=== PATIENT | female | born 1990 | race Caucasian/White ===

== ENCOUNTER → 2021-08-03 | Outpatient (CLI) ==
[~2021-08-03] MED LIST: BIRTH CONTROL PILL PO
[2021-08-03 14:08] LABS: BASOPHILS % (AUTO) 0 % (0-10); EOSINOPHILS # (AUTO) 0.2 10^3/uL (0.0-0.3); EOSINOPHILS % (AUTO) 2 % (0-10); HEMATOCRIT 34 % (35-52); HEMOGLOBIN 11.6 g/dL (11.5-16.0); LYMPHOCYTES # (AUTO) 1.9 10^3/uL (1.0-4.0); LYMPHOCYTES % (AUTO) 16 % (12-44); MEAN CORPUSCULAR HEMOGLOBIN 31 pg (25-34); MEAN CORPUSCULAR HGB CONC 34 g/dL (32-36); MEAN CORPUSCULAR VOLUME 91 fL (80-99); MEAN PLATELET VOLUME 10.6 fL (9.0-12.2); MONOCYTES # (AUTO) 0.4 10^3/uL (0.0-1.0); MONOCYTES % (AUTO) 3 % (0-12); NEUTROPHILS # (AUTO) 9.1 10^3/uL (1.8-7.8); NEUTROPHILS % (AUTO) 78 % (42-75); PLATELET COUNT 254 10^3/uL (130-400); WHITE BLOOD COUNT 11.7 10^3/uL (4.3-11.0)
== END ==
LOC: LABNPT 13:51
PROVIDERS: ATTEND Obstetrics & Gynecology
DX: Z36.89 Encounter for other specified antenatal screening (principal)
CPT/HCPCS: 82950; 85025

== ENCOUNTER 2021-11-08 10:54 | Outpatient (CLI) | payer OTHER ==
[~2021-11-08] VITALS: Ht 162.6 cm; Wt 116.2 kg
[2021-11-08 11:05] VITALS: BP 141/95
[2021-11-08 11:20] VITALS: BP 157/85
[2021-11-08 11:35] VITALS: BP 123/56
[2021-11-08 11:36] LABS: BILIRUBIN,URINE NEGATIVE (NEGATIVE); CLARITY,URINE CLEAR; COLOR,URINE YELLOW; GLUCOSE, URINE (UA) NEGATIVE (NEGATIVE); KETONES,URINE NEGATIVE (NEGATIVE); LEUKOCYTE ESTERASE ,URINE NEGATIVE (NEGATIVE); NITRITE,URINE NEGATIVE (NEGATIVE); PROTEIN,URINE NEGATIVE (NEGATIVE)
[2021-11-08 11:38] LABS: BASOPHILS % (AUTO) 0 % (0-10); EOSINOPHILS # (AUTO) 0.2 10^3/uL (0.0-0.3); EOSINOPHILS % (AUTO) 2 % (0-10); HEMATOCRIT 37 % (35-52); HEMOGLOBIN 12.2 g/dL (11.5-16.0); LYMPHOCYTES # (AUTO) 1.4 10^3/uL (1.0-4.0); LYMPHOCYTES % (AUTO) 13 % (12-44); MEAN CORPUSCULAR HEMOGLOBIN 30 pg (25-34); MEAN CORPUSCULAR HGB CONC 33 g/dL (32-36); MEAN CORPUSCULAR VOLUME 89 fL (80-99); MEAN PLATELET VOLUME 11.6 fL (9.0-12.2); MONOCYTES # (AUTO) 0.4 10^3/uL (0.0-1.0); MONOCYTES % (AUTO) 4 % (0-12); NEUTROPHILS # (AUTO) 8.4 10^3/uL (1.8-7.8); NEUTROPHILS % (AUTO) 81 % (42-75); PLATELET COUNT 166 10^3/uL (130-400); WHITE BLOOD COUNT 10.5 10^3/uL (4.3-11.0)
[2021-11-08 11:48] LABS: ALBUMIN 3.3 GM/DL (3.2-4.5); POTASSIUM 3.9 MMOL/L (3.6-5.0)
[2021-11-08 11:49] LABS: BACTERIA,URINE FEW /HPF
[2021-11-08 11:50] VITALS: BP 119/56
[2021-11-08 11:50] LABS: CALCIUM 9.7 MG/DL (8.5-10.1)
[2021-11-08 11:51] LABS: TOTAL PROTEIN 6.3 GM/DL (6.4-8.2)
[2021-11-08 11:53] LABS: BILIRUBIN,TOTAL 0.4 MG/DL (0.1-1.0)
[2021-11-08 11:54] LABS: CREATININE SERUM 0.79 MG/DL (0.60-1.30)
[2021-11-08 11:58] LABS: URIC ACID 7.1 MG/DL (2.6-7.2)
[2021-11-08 12:05] VITALS: BP 120/58
[2021-11-08] MEDS ORDERED: ONDA4TAB11 PO (13:02)
[2021-11-08] MEDS ORDERED: RIZA10TA37 PO (13:02)
--- NOTE | 2021-11-09 08:01 | Physician Query-Final Dx ---
MANI,11/09/21 0801: Clinic Account Progress/Dx Physician Query: Please give diagnosis Please include # weeks gestation Date of Service Nov 08, 2021 at 10:54 PUNEET BERNAL DO 11/09/21 0912: Clinic Account Progress/Dx DIAGNOSIS: Diagnosis 39 week IUP Migraine headache MANI,AprNov 09, 2021 08:01 PUNEET BERNAL DO Nov 09, 2021 09:12
== END 2021-11-08 13:27 | disposition home or self-care (01) ==
LOC: WSo 10:54 → LDRP 11:00 → WSo 13:27
PROVIDERS: ATTEND Obstetrics & Gynecology
DX: O26.893 Other specified pregnancy related conditions, third trimester (principal); G43.909 Migraine, unspecified, not intractable, without status migrainosus; Z3A.39 39 weeks gestation of pregnancy
CPT/HCPCS: 36415; 80053; 81000; 82570; 84156; 84550; 85025; 99213

== ENCOUNTER 2021-11-10 05:03 | Inpatient (IN) | payer OTHER ==
[~2021-11-10] VITALS: Ht 162.6 cm; Wt 116.8 kg
[~2021-11-10 05:03] MED LIST changes: +ONDA4TAB11 PO; +RIZA10TA37 PO
[2021-11-10] MEDS ORDERED: LACTATED RINGERS 1,000 ML IV ONE ×2 (19:00→23:15)
[2021-11-10 19:11] VITALS: BP 145/84
[2021-11-10 19:46] VITALS: BP 140/80
[2021-11-10] MEDS ORDERED: D5 LR IV SOLUTION 1,000 ML IV ONE (20:13)
[2021-11-10] MEDS ORDERED: TERBUTALINE INJ 1 MG/ML (BRETHINE) AMP SC PRN (20:15)
[2021-11-10 20:19] LABS: BASOPHILS % (AUTO) 0 % (0-10); EOSINOPHILS # (AUTO) 0.2 10^3/uL (0.0-0.3); EOSINOPHILS % (AUTO) 2 % (0-10); HEMATOCRIT 33 % (35-52); HEMOGLOBIN 11.6 g/dL (11.5-16.0); LYMPHOCYTES # (AUTO) 2.3 10^3/uL (1.0-4.0); LYMPHOCYTES % (AUTO) 19 % (12-44); MEAN CORPUSCULAR HEMOGLOBIN 30 pg (25-34); MEAN CORPUSCULAR HGB CONC 35 g/dL (32-36); MEAN CORPUSCULAR VOLUME 87 fL (80-99); MEAN PLATELET VOLUME 12.3 fL (9.0-12.2); MONOCYTES # (AUTO) 0.6 10^3/uL (0.0-1.0); MONOCYTES % (AUTO) 5 % (0-12); NEUTROPHILS # (AUTO) 8.9 10^3/uL (1.8-7.8); NEUTROPHILS % (AUTO) 74 % (42-75); PLATELET COUNT 173 10^3/uL (130-400)
[2021-11-10] MEDS: D5 LR IV SOLUTION 1,000 ML IV SCH (20:42)
[2021-11-10 20:50] VITALS: BP 135/81
[2021-11-10 20:57] LABS: BILIRUBIN,URINE NEGATIVE (NEGATIVE); CLARITY,URINE CLEAR; COLOR,URINE YELLOW; GLUCOSE, URINE (UA) NEGATIVE (NEGATIVE); KETONES,URINE NEGATIVE (NEGATIVE); LEUKOCYTE ESTERASE ,URINE NEGATIVE (NEGATIVE); NITRITE,URINE NEGATIVE (NEGATIVE); PROTEIN,URINE TRACE (NEGATIVE)
[2021-11-10 21:18] LABS: BACTERIA,URINE FEW /HPF
[2021-11-10 21:19] LABS: CALCIUM OXALATE CRYSTALS,UR MODERATE /LPF
[2021-11-10 21:21] LABS: WBC,URINE 0-2 /HPF
[2021-11-10 21:50] VITALS: BP 142/74
[2021-11-10] MEDS ORDERED: AMPICILLIN FOR IV USE 2,000 MG in NS (IVPB) 50 ML IV ONE (21:57)
[2021-11-10] MEDS ORDERED: CATHETER FLUSH 10 ML SYR IV SCH (22:00)
[2021-11-10] MEDS ORDERED: AMPICILLIN 2,000 MG/14.8 ML (IV USE) ONE (22:03)
[2021-11-10] MEDS ORDERED: NS (IVPB) 50 ML ONE (22:05)
[2021-11-10] MEDS ORDERED: ONDANSETRON 4 MG/2 ML (SDV) Z0FRAN ONE (22:47)
[2021-11-10] MEDS ORDERED: ONDANSETRON 4 MG/2 ML (SDV) Z0FRAN IVP ONE (23:00)
[2021-11-10] MEDS ORDERED: fentaNYL 2 mcg/ml BUPIVA 0.125 100 ML ONE (23:19)
[2021-11-10] MEDS ORDERED: fentaNYL INJ 100 MCG/2 ML AMP ONE (23:41)
[2021-11-10] MEDS ORDERED: BUPIVACAINE 0.25% 30 ML (SENSORCAINE) VIAL ONE (23:41)
[2021-11-10 23:46] VITALS: BP 182/111
[2021-11-10 23:51] VITALS: BP 188/97
[2021-11-11] VITALS (56 sets, daily range): BP systolic 112–239; BP diastolic 62–131
[2021-11-11] MEDS ORDERED: NALOXONE 0.4 MG/ML 1 ML (NARCAN) VIAL IV PRN ×3 (00:30→05:15)
[2021-11-11] MEDS ORDERED: LACTATED RINGERS 1,000 ML IV SCH (00:30)
[2021-11-11] MEDS ORDERED: fentaNYL 2 mcg/ml BUPIVA 0.125 100 ML EPI SCH (00:30)
[2021-11-11] MEDS ORDERED: ONDANSETRON 4 MG/2 ML (SDV) Z0FRAN IV PRN (00:30)
[2021-11-11] MEDS ORDERED: diphenhydrAMINE 50 MG/ML INJ (BENADRYL) IV PRN (00:30)
[2021-11-11] MEDS ORDERED: METOCLOPRAMIDE INJ 10 MG/2 ML (REGLAN) IV PRN (00:30)
[2021-11-11] MEDS ORDERED: hydrALAZINE (APESOLINE) 20 MG/ML VIAL ONE (01:40)
[2021-11-11] MEDS ORDERED: hydrALAZINE (APESOLINE) 20 MG/ML VIAL IV ONE (01:45)
[2021-11-11] MEDS ORDERED: AMPICILLIN FOR IV USE 1,000 MG in NS (IVPB) 50 ML IV SCH (02:00)
[2021-11-11] MEDS ORDERED: OXYTOCIN PRE-MIX DRIP 500 ML IV ONE ×2 (02:13→04:50)
[2021-11-11] MEDS: D5 LR IV SOLUTION 1,000 ML IV SCH (02:20)
--- NOTE | 2021-11-11 02:40 | History & Physical-OB ---
OB - Chief Complaint & HPI Date/Time Date of Admission: Date of Admission: Nov 10, 2021 at 18:58 Date seen by a Provider: Nov 11, 2021 Time Seen by a Provider: 01:45 Chief Complaint/History OB-Reason for Admission/Chief: Induction of Labor Hx : 1 Hx Para: 0 Expected Date of Delivery: Nov 09, 2021 Gestational Age in Weeks: 40 Gestational Age in Days: 1 Indication for induction: post dates, medical complication (GHTN) Admission Nurse Assessment Rev: Yes Allergies and Home Medications Allergies Coded Allergies: No Known Drug Allergies (Unverified , 08/04/21) Patient Home Medication List Home Medication List Reviewed: Yes Ondansetron (Ondansetron Odt) 4 Mg Tab.rapdis, 4 MG PO, (Reported) Entered as Reported by: LATOYA DAY on 11/08/21 1302 Rizatriptan Benzoate (Rizatriptan) 10 Mg Tablet, 10 MG PO, (Reported) Entered as Reported by: LATOYA DAY on 11/08/21 1302 Discontinued Medications [ Control Pill] , 1 TAB PO DAILY, (Reported) Discontinued Reason: No Longer Taking Entered as Reported by: ANGIE PONCE on 10/09/11 1527 OB - History Hx of Present Care: Yes Ultrasounds: Normal mid trimester US Obstetrical Complications: Gestational Hypertension (presenting just this week) Medical Complications: None Patient Past Medical History migraines Immunizations Influenza Vaccine Up-to-Date: Yes; Up-to-Date COVID19 Vaccine Private Household Worker: [employer] Hepatitis A: Yes Hepatitis B: Yes OB - Admission Exam Physical Exam Vitals: Vital Signs 11/10/21 11/10/21 11/10/21 21:40 21:50 22:26 Temp 37.2 Pulse 91 Resp 20 B/P (MAP) 142/74 (96) Pulse Ox 99 O2 Delivery Room Air O2 Flow Rate 15.00 HEENT: NCAT Heart: Rhythm Normal Lungs: Clear Abdomen: Gravid Extremities: Normal Reflexes: Normal Cervical Dilatation: 1cm Effacement: 50% Station: -3 Membranes: Intact Heart Rate: 130's Accelerations: Accelerations Present Decelerations: No Decelerations Short Term Variability: Present Retirement Variability: Average (6-25) Contractions on Admission: 6-10 Minutes Apart Intensity: Mild Labs Laboratory Tests Test 11/10/21 19:00 11/10/21 19:30 Range/Units Urine Color YELLOW Urine Clarity CLEAR Urine pH 6.0 5-9 Urine Specific [place] >=1.030 1.016-1.022 Urine Protein TRACE H NEGATIVE Urine Glucose (UA) NEGATIVE NEGATIVE Urine Ketones NEGATIVE NEGATIVE Urine Nitrite NEGATIVE NEGATIVE Urine Bilirubin NEGATIVE NEGATIVE Urine Urobilinogen 0.2 < = 1.0 MG/DL Urine Leukocyte Esterase NEGATIVE NEGATIVE Urine RBC (Auto) NEGATIVE NEGATIVE Urine RBC NONE /HPF Urine WBC 0-2 /HPF Urine Squamous Epithelial Cells 5-10 /HPF Urine Crystals PRESENT H /LPF Urine Calcium Oxalate Crystals MODERATE H /LPF Urine Bacteria FEW H /HPF Urine Casts NONE /LPF Urine Mucus SMALL H /LPF Urine Culture Indicated YES White Blood Count 12.0 H 4.3-11.0 10^3/uL Red Blood Count 3.81 3.80-5.11 10^6/uL Hemoglobin 11.6 11.5-16.0 g/dL Hematocrit 33 L 35-52 % Mean Corpuscular Volume 87 80-99 fL Mean Corpuscular Hemoglobin 30 25-34 pg Mean Corpuscular Hemoglobin Concent 35 32-36 g/dL Red Cell Distribution Width 12.9 10.0-14.5 % Platelet Count 173 130-400 10^3/uL Mean Platelet Volume 12.3 H 9.0-12.2 fL Immature Granulocyte % (Auto) 1 % Neutrophils (%) (Auto) 74 42-75 % Lymphocytes (%) (Auto) 19 12-44 % Monocytes (%) (Auto) 5 0-12 % Eosinophils (%) (Auto) 2 0-10 % Basophils (%) (Auto) 0 0-10 % Neutrophils # (Auto) 8.9 H 1.8-7.8 10^3/uL Lymphocytes # (Auto) 2.3 1.0-4.0 10^3/uL Monocytes # (Auto) 0.6 0.0-1.0 10^3/uL Eosinophils # (Auto) 0.2 0.0-0.3 10^3/uL Basophils # (Auto) 0.0 0.0-0.1 10^3/uL Immature Granulocyte # (Auto) 0.1 0.0-0.1 10^3/uL OB - Assessment/Plan/Diagnosis Assessment Assessment: induction of labor Admission Dx 31 yo @ 40 weeks IOL for GHTN Post dates GBS pos Admission Status: Inpatient Order (span 2 midnights) Reason for Inpatient Admission: 40 week IOL Plan Plan: Induction Induction Method: per Misoprostol Protocol PUNEET BERNAL DO Nov 11, 2021 02:40
[2021-11-11] MEDS ORDERED: LIDOCAINE/EPI 2% 1:200,00 (XYLOCAINE) 10 ML VIAL INJ ONE (04:00)
[2021-11-11] MEDS ORDERED: LIDOCAINE/EPI 2% 1:200,00 (XYLOCAINE) 10 ML VIAL ONE (04:12)
[2021-11-11] MEDS: OXYTOCIN PRE-MIX DRIP 500 ML IV SCH ×2 (04:40→05:12)
--- NOTE | 2021-11-11 05:03 | OB Labor & Delivery Record ---
L&D History Date of Service Date of Service: Nov 11, 2021 History Expected Date of Delivery: Nov 09, 2021 Gestational Age in Weeks: 40 Hx : 1 Hx Para: 0 Complications Events: Induced HTN, Routine care Operative Indications (Cesarea: N/A-Vaginal Delivery Intrapartal Events: None, Ineffective Pushing L&D Stage1 Stage One Onset of Labor - Date: Nov 11, 2021 Monitors and Tracing Monitor Mode: External Heart Rate: 140 Monitor Accelerations: Uniform Monitor Decelerations: Variable Instructional Consultant Variability: Average (6-10) Short Term Variability: Present Presentation: Vertex Vital Signs VS - Last 72 Hours, by Label 11/10/21 11/10/21 11/10/21 11/10/21 19:11 19:46 20:50 20:59 Temp 37.4 Pulse 96 92 84 96 Resp 22 20 B/P (MAP) 140/80 (100) 135/81 (99) Pulse Ox 98 97 O2 Delivery Room Air Room Air Room Air Non Rebreather O2 Flow Rate 15.00 11/10/21 11/10/21 11/10/21 11/10/21 21:04 21:10 21:15 21:20 Pulse 96 96 89 83 Pulse Ox 100 100 100 100 O2 Delivery Non Rebreather Non Rebreather Non Rebreather Non Rebreather O2 Flow Rate 15.00 15.00 15.00 15.00 11/10/21 11/10/21 11/10/21 11/10/21 21:25 21:30 21:36 21:40 Pulse 90 86 91 84 Pulse Ox 100 100 100 100 O2 Delivery Non Rebreather Non Rebreather Non Rebreather Non Rebreather O2 Flow Rate 15.00 15.00 15.00 15.00 11/10/21 11/10/21 21:50 22:26 Temp 37.2 Pulse 91 Resp 20 B/P (MAP) 142/74 (96) Pulse Ox 99 O2 Delivery Room Air Room Air Rupture of Membranes Spontaneous Ruture of Membrane: Yes Amniotic Membrane Rupture Time: 2058 Amniotic Membrane Fluid Desc.: Clear Vaginal Bleeding Description: Normal Show Induction/Anesthesia Epidural Cath Placement - Time: 1 Progress/Notes Patient admitted for IOL secondary to post dates, GBS + and labile GHTN. Cytotec 100 mcg given PO after admission bolus of fluids. SROM occurred shortly after. She rapidly made change and received an epidural that was not very effective but progressed to complete and 0 station with no other augmentation. L&D Stage2 Stage Two Stage II Date: Nov 11, 2021 Monitors and Tracing Monitor Mode: External Heart Rate: 140 Monitor Accelerations: Uniform Monitor Decelerations: Variable Instructional Consultant Variability: Average (6-10) Short Term Variability: Present Position: Right Occiput Anterior Presentation: Vertex Cord Descript/Complications Cord Vessel Description: 3 Vessels Complications Patient was able to progress vtx to + 2 station at which point pushing became ineffective. Due to recurrent heart rate decelerations and ineffective pushing decision was made to proceed with low vacuum extraction. Kiwi cup placed over flexion point, where 500 mmHg is applied using the hand piece at the next contraction. With maternal push an RML episiotomy was made, and with gentle downward traction and extension of the head, the was delivered where suction was released. Remainder of delivery was unremarkable. Delivery Type Infant Delivery Method: Low Vacuum Extraction Anterior Shoulder: Left Episiotomy/Perineal Laceration Laceraction(s)/Extensions: Yes Episiotomy Description: Right Mediolateral (RML repaired using 3-0 and 2-0 vicryl suture.) Condition of Delivery 1 minute Comment: 8 5 minute Comment: 9 Notes Live male weight 3430 gms. Condition of Condition of Infant: Living Exam: No Observed Abnormalities Resuscitation Resuscitation: N/A - Spontaneous Resp L&D Stage3 Stage Three Stage III Date: Nov 11, 2021 Pictocin Pitocin Administration Comment: 30 mu wide open after delivery of placenta Placenta Delivery Placenta Delivery: Spontaneous Delivery Summary Summary Estimated blood loss (mL): 400 Attending at delivery: Puneet Bernal DO Condition of Delivery Examined: Cervix Examined, Uterus Explored Post Hemorrhage: No Condition of Mother stable Condition of (s) stable PUNEET BERNAL DO Nov 11, 2021 05:03
--- NOTE | 2021-11-11 05:05 | Discharge Inst-Women's Service ---
Discharge Inst-Women's Serv Depart Medication/Instructions New, Converted or Re-Newed RX: Transmitted to Pharmacy Final Diagnosis PPD 1 VAVD Problems Reviewed?: Yes Consults/Follow Up Additional Follow Up: Yes Orders/Referrals Dr. Bernal in 6 weeks Activity Activity: Activity as Tolerated Driving Instructions: No Driving for 1 Week NO SMOKING: NO SMOKING Nothing Inside Vagina: No Douching, No [place], No Tampons Diet Discharge Diet: No Restrictions Symptoms to Report to : Bleeding Excessive, Pain Increased, Fever Over 101 Degrees F, Vaginal Bleeding Increase, Questions/Concerns For Any Problems or Questions: Contact Your Physician PUNEET BERNAL DO Nov 11, 2021 05:05
[2021-11-11] MEDS ORDERED: IBUP-844 PO (05:08)
[2021-11-11] MEDS ORDERED: DIBU30OI TOP (05:08)
[2021-11-11] MEDS ORDERED: ACHD5005 PO (05:08)
[2021-11-11] MEDS ORDERED: DOCU100C37 PO (05:08)
[2021-11-11] MEDS ORDERED: BENZ78AE5 TP (05:08)
[2021-11-11] MEDS ORDERED: FERR325T24 PO (05:08)
[2021-11-11] MEDS ORDERED: MEASLES,MUMPS,RUBELLA 1 EA INJ SQ ONE (05:15)
[2021-11-11] MEDS ORDERED: WITCH HAZEL(TUCKS) 40 EA JAR TOP PRN (05:15)
[2021-11-11] MEDS ORDERED: HYDROcodone/APAP 5 MG/325 MG (LORTAB) TAB PO PRN (05:15)
[2021-11-11] MEDS ORDERED: BENZOCAINE/MENTHOL (DERMOPLAST) 56 ML CAN TP PRN (05:15)
[2021-11-11] MEDS ORDERED: DIBUCAINE 1% OINTMENT 30 GM TUBE TOP PRN (05:15)
[2021-11-11] MEDS ORDERED: TETANUS,DIPTH,PERTUSS P/F (BOOSTRIX) 0.5 ML VIAL IM ONE (05:15)
[2021-11-11] MEDS: IBUPROFEN 600 MG (MOTRIN) TAB PO SCH ×5 (05:52→23:30)
[2021-11-11] MEDS ORDERED: IBUPROFEN 600 MG (MOTRIN) TAB PO SCH (06:00)
[2021-11-11] MEDS ORDERED: CATHETER FLUSH 10 ML SYR IV SCH (06:00)
[2021-11-11] MEDS: PRENATAL VITAMIN 1 EA TAB PO SCH (07:13)
[2021-11-11] MEDS: DOCUSATE SODIUM 100 MG (COLACE) CAP PO SCH ×2 (09:33→23:30)
[2021-11-11] MEDS: FERROUS SULF 325 MG (IRON) TAB PO SCH (09:33)
--- NOTE | 2021-11-11 13:09 | Anesthesia-Regional Post-Op ---
Regional Patient Condition Mental Status: Alert, Oriented x3 Circulation: Same as Pre-Op Headache: Absent Sensation: Full Recovery Motor Block: Absent Post Op Complications Complications None Follow Up Care/Instructions Patient Instructions None needed. Anesthesia/Patient Condition Patient is doing well, no complaints, stable vital signs, no apparent adverse anesthesia problems. No complications reported per nursing. FREDO MEJIA CRNA Nov 11, 2021 13:09
[2021-11-12 00:01] VITALS: BP 118/63
[2021-11-12] MEDS: IBUPROFEN 600 MG (MOTRIN) TAB PO SCH (05:36)
[2021-11-12 05:38] VITALS: BP 127/74
[2021-11-12 06:11] LABS: HEMATOCRIT 28 % (35-52); MEAN CORPUSCULAR VOLUME 88 fL (80-99); MEAN PLATELET VOLUME 12.5 fL (9.0-12.2); NEUTROPHILS % (AUTO) 72 % (42-75)
[2021-11-12 06:14] LABS: BASOPHILS % (AUTO) 0 % (0-10); EOSINOPHILS # (AUTO) 0.3 10^3/uL (0.0-0.3); EOSINOPHILS % (AUTO) 2 % (0-10); HEMOGLOBIN 9.6 g/dL (11.5-16.0); LYMPHOCYTES % (AUTO) 20 % (12-44); MEAN CORPUSCULAR HEMOGLOBIN 30 pg (25-34); MEAN CORPUSCULAR HGB CONC 34 g/dL (32-36); MONOCYTES # (AUTO) 0.6 10^3/uL (0.0-1.0); MONOCYTES % (AUTO) 4 % (0-12); NEUTROPHILS # (AUTO) 10.6 10^3/uL (1.8-7.8); PLATELET COUNT 134 10^3/uL (130-400); WHITE BLOOD COUNT 14.7 10^3/uL (4.3-11.0)
[2021-11-12] MEDS: FERROUS SULF 325 MG (IRON) TAB PO SCH (08:48)
[2021-11-12] MEDS: DOCUSATE SODIUM 100 MG (COLACE) CAP PO SCH (08:48)
[2021-11-12] MEDS: PRENATAL VITAMIN 1 EA TAB PO SCH (08:48)
[2021-11-12 08:49] VITALS: BP 157/77
--- NOTE | 2021-11-12 09:40 | Postpartum Progress Note ---
Note Note Day # 1 Subjective: Patient is without complaints. Ambulating, voiding. Tolerating a regular diet without nausea or vomiting. Normal lochia. Pain is well controlled with oral pain medications. Physical Exam: General - Alert and oriented, no apparent distress Abdomen - Soft, appropriately tender to palpation, non-distended, fundus firm at umbilicus Extremities - no edema, negative Glen's bilaterally Assessment: Post- day # 1, status post vaginal delivery w/vacuum assist Recovering well, hemodynamically stable Acute blood loss anemia Plan: Routine care. Encourage breast feeding. Encourage ambulation. Ferrous sulfate supplementation. Plan for discharge today Vitals - Labs Vital Signs - I&O Vital Signs Date Time Temp Pulse Resp B/P (MAP) Pulse Ox O2 Delivery O2 Flow Rate FiO2 11/12/21 08:49 36.4 75 18 157/77 (103) 97 11/12/21 05:38 36.2 67 18 127/74 (91) 97 11/12/21 00:01 36.4 77 18 118/63 (81) 97 11/11/21 19:40 36.3 83 18 156/74 (101) 96 11/11/21 16:45 36.4 143 18 143/76 (98) 97 Room Air 11/11/21 12:20 36.6 93 18 142/74 (96) 97 Room Air I & O 11/12/21 07:00 Intake Total 1000 ml Balance 1000 ml Labs Laboratory Tests 11/12/21 05:18: White Blood Count 14.7H, Red Blood Count 3.21L, Hemoglobin 9.6L, Hematocrit 28L, Mean Corpuscular Volume 88, Mean Corpuscular Hemoglobin 30, Mean Corpuscular Hemoglobin Concent 34, Red Cell Distribution Width 13.2, Platelet Count 134, Mean Platelet Volume 12.5H, Immature Granulocyte % (Auto) 1, Neutrophils (%) (Auto) 72, Lymphocytes (%) (Auto) 20, Monocytes (%) (Auto) 4, Eosinophils (%) (Auto) 2, Basophils (%) (Auto) 0, Neutrophils # (Auto) 10.6H, Lymphocytes # (Auto) 3.0, Monocytes # (Auto) 0.6, Eosinophils # (Auto) 0.3, Basophils # (Auto) 0.0, Immature Granulocyte # (Auto) 0.1, Percent Immature Platelet Fraction 10.4H Microbiology 8/10/22 Urine Culture - Preliminary, Resulted Culture In Progress SIL MOREJON NUTRITION HELPER Nov 12, 2021 09:39
== END 2021-11-12 11:15 | disposition home or self-care (01) | DRG 806 ==
LOC: LDRP 18:58
PROVIDERS: ADMIT Obstetrics & Gynecology; ATTEND Obstetrics & Gynecology
PROC: 10D07Z6 Extraction of Products of Conception, Vacuum, Via Natural or Artificial Opening (ICD-10-PCS; principal; 2021-11-10)
PROC: 0W8NXZZ Division of Female Perineum, External Approach (ICD-10-PCS; 2021-11-10)
DX: O48.0 Post-term pregnancy (principal); D62 Acute posthemorrhagic anemia; Z37.0 Single live birth; O13.4 Gestational [pregnancy-induced] hypertension without significant proteinuria, complicating childbirth; Z3A.40 40 weeks gestation of pregnancy; O99.824 Streptococcus B carrier state complicating childbirth; O90.81 Anemia of the puerperium
CPT/HCPCS: 36415; 81000; 85025; 86850; 86900; 86901; 87077; 87088